=== PATIENT | male | born 1945 | race Caucasian/White ===

== ENCOUNTER 2017-04-06 08:22 | Day surgery (SDC) | payer OTHER ==
[2017-04-06] MEDS ORDERED: TETRACAINE 0.5% OPHTH 1 DOSE AFFEYE ONE ×2 (08:45→11:48)
[2017-04-06] MEDS ORDERED: VIGAMOX 0.5% OPHTH 1 DOSE AFFEYE ONE ×5 (08:50→12:26)
[2017-04-06] MEDS ORDERED: NS 500 ML IV 500 ML IV ONE (08:51)
[2017-04-06] MEDS ORDERED: PROLENSA OPHTH 1 DOSE AFFEYE ONE (09:01)
[2017-04-06] MEDS ORDERED: ALPHAGAN-P OPHTH 1 DOSE AFFEYE ONE (09:02)
[2017-04-06] MEDS ORDERED: CYCLOGYL 1% OPHTH 1 DOSE OP ONE ×3 (09:03→09:05)
[2017-04-06] MEDS ORDERED: AK-DILATE 2.5% OPHTH 1 DOSE OP ONE ×3 (09:03→09:05)
[2017-04-06] MEDS ORDERED: MYDRIACIL OPHTH 1 DOSE AFFEYE ONE ×3 (09:03→09:05)
[2017-04-06] MEDS ORDERED: BETADINE OPHTH SOLN 5% EACHEYE ONE (11:45)
[2017-04-06] MEDS ORDERED: DUOVISC IO ONE ×2 (11:49→12:09)
[2017-04-06] MEDS ORDERED: ADRENALINE CHL INJ IJ ONE ×2 (11:49→12:09)
[2017-04-06] MEDS ORDERED: XYLOCAINE-MPF 1% IJ ONE ×2 (11:49→12:09)
[2017-04-06] MEDS ORDERED: BSS OPHTH (PLAIN) 500 ML with VANCOMYCIN HCL 500 MG VIAL 25 MG, ADRENALINE CHL INJ 1 MG IR ONE ×6 (11:51)
[2017-04-06 14:40] VITALS: BP 160/86
== END 2017-04-06 12:55 | disposition home or self-care (01) ==
LOC: SURG1 08:22
PROVIDERS: ATTEND Ophthalmology
PROC: 08DJ3ZZ Extraction of Right Lens, Percutaneous Approach (ICD-10-PCS; principal; 2017-04-06 13:15)
PROC: 08RJ3JZ Replacement of Right Lens with Synthetic Substitute, Percutaneous Approach (ICD-10-PCS; principal; 2017-04-06 13:15)
DX: H25.11 Age-related nuclear cataract, right eye (principal); H25.011 Cortical age-related cataract, right eye; H52.221 Regular astigmatism, right eye
CPT/HCPCS: A4217; J0170; J3370

== ENCOUNTER 2017-05-11 10:50 | Day surgery (SDC) | payer OTHER ==
[2017-05-11] MEDS ORDERED: NS 500 ML IV 500 ML IV ONE (10:56)
[2017-05-11] MEDS ORDERED: TETRACAINE 0.5% OPHTH 1 DOSE AFFEYE ONE ×4 (11:00→15:34)
[2017-05-11] MEDS ORDERED: VIGAMOX 0.5% OPHTH 1 DOSE AFFEYE ONE ×5 (11:01→15:48)
[2017-05-11] MEDS ORDERED: PROLENSA OPHTH 1 DOSE AFFEYE ONE (11:12)
[2017-05-11] MEDS ORDERED: ALPHAGAN-P OPHTH 1 DOSE AFFEYE ONE (11:13)
[2017-05-11] MEDS ORDERED: VISINE-A OPHTH 1 DOSE AFFEYE ONE (11:14)
[2017-05-11] MEDS ORDERED: MYDRIACIL OPHTH 1 DOSE AFFEYE ONE ×4 (11:15→11:18)
[2017-05-11] MEDS ORDERED: AK-DILATE 2.5% OPHTH 1 DOSE OP ONE ×4 (11:15→11:18)
[2017-05-11] MEDS ORDERED: CYCLOGYL 1% OPHTH 1 DOSE OP ONE ×4 (11:15→11:18)
[2017-05-11] MEDS ORDERED: AK-DILATE 10% OPHTH 1 DOSE AFFEYE ONE ×2 (13:17)
[2017-05-11] MEDS ORDERED: VERSED ONE (13:42)
[2017-05-11] MEDS ORDERED: DIPRIVAN VIAL ONE (13:42)
[2017-05-11] MEDS ORDERED: BETADINE OPHTH SOLN 5% EACHEYE ONE (15:05)
[2017-05-11] MEDS ORDERED: DUOVISC IO ONE ×2 (15:08→15:34)
[2017-05-11] MEDS ORDERED: ADRENALINE CHL INJ IJ ONE ×2 (15:08→15:34)
[2017-05-11] MEDS ORDERED: XYLOCAINE-MPF 1% IJ ONE ×2 (15:08→15:34)
[2017-05-11] MEDS ORDERED: BSS OPHTH (PLAIN) 500 ML with VANCOMYCIN HCL 500 MG VIAL 25 MG, ADRENALINE CHL INJ 1 MG IR ONE ×3 (15:36)
[2017-05-11] MEDS ORDERED: VISCOAT 0.5 ML IO ONE (15:39)
[2017-05-11 17:11] VITALS: BP 168/85
== END 2017-05-11 16:15 | disposition home or self-care (01) ==
LOC: SURG1 10:50
PROVIDERS: ATTEND Ophthalmology
PROC: 08RK3JZ Replacement of Left Lens with Synthetic Substitute, Percutaneous Approach (ICD-10-PCS; principal; 2017-05-11 03:45)
PROC: 08DK3ZZ Extraction of Left Lens, Percutaneous Approach (ICD-10-PCS; principal; 2017-05-11 03:45)
DX: H25.12 Age-related nuclear cataract, left eye (principal); H52.222 Regular astigmatism, left eye
CPT/HCPCS: 99100; A4217; J0170; J2250; J3370; J3490